=== PATIENT | female | born 2000 | race Caucasian/White ===

== ENCOUNTER 2022-07-11 17:03 | Inpatient (IN) | payer OTHER, SELFPAY ==
[2022-07-11 17:15] VITALS: BP 128/76; PULSE 100; RESP 18; TEMP 36.4; O2SAT 100
[2022-07-11 18:05] VITALS: BMI 24.0
--- NOTE | 2022-07-11 18:25 | PC.ADMIT ---
Patient is a 22 year old female from [facility] admitted on a CV with a diagnosis of major depressive disorder. Patient was sectioned to the ED by a mandated field reporter after disclosing to them homicidal ideation with a plan towards ex. Patient told reported that she had purchased a chainsaw and planned to use this to kill her ex. Per report she also told them that she would kill herself if this was disclosed to the police. On admission patient denied any HI, stating that this was a lie and that she had already met with the person she allegedly had HI towards days before and though she felt 'resentment' she denies having had any HI. Patient states that while at work she received a call from her therapist notifying her that the police had been told. She states that in response to this she left work, went home, and took 30 capsules of adderall. Patient reports she would have taken other medications but she was interrupted by the arrival of the police. This is the patient's third inpatient admission, she has a hx of overdosing on seroquel last fall and history of self harm (last attempt in 2020). Pt denies any medical history, denies any substance use history. On arrival she was dressed in [facility]. Eye contact was intermittent, and she was extremely soft spoken. Patient reported some anxiety about her job at [employer]. Thought process was linear and organized. Patient denies any SI/HI, denies any AH/VH.
[2022-07-12 06:44] VITALS: BP 134/96; PULSE 113; RESP 18; TEMP 36.6; O2SAT 98
--- NOTE | 2022-07-12 07:02 | PC.NURSE ---
Dolores c/o feeling dizzy in am and requested her vital signs to be taken HR 113 and B/P 134/96 while standing. at rest the Heart rate is 68 oscillated however this RN noted that her heart rate increases dramatically with any movement AEB: HR at rest 68, HR after removing blankets 117. will pass on to day RN
[2022-07-12 07:31] LABS: Alanine Aminotransferase 8 U/L (0-31); Albumin Level 4.4 g/dL (3.5-5.0); Alkaline Phosphatase 61 U/L (39-117); Anion Gap 14 (12-20); Aspartate Amino Transferase 12 U/L (5-31); Bilirubin Direct 0.2 mg/dL (0.0-0.5); Bilirubin Total 0.7 mg/dL (0.0-1.0); Blood Urea Nitrogen 11 mg/dL (9-16); Calcium 9.2 mg/dL (8.4-10.2); Carbon Dioxide 20 mmol/L (22-29); Chloride 111 mmol/L (96-108); Cholesterol 125 mg/dL; Creatinine Clr Calc Pharmacy 72.7; Estimated Glomerular Filt Rate > 60; Glucose Fasting 93 mg/dL (60-99); HDL Cholesterol 46 mg/dL; LDL Cholesterol Calculated 71 mg/dl; Potassium 4.1 mmol/L (3.3-5.1); Sodium 141 mmol/L (135-145); Total Protein 7.4 g/dL (6.5-8.0); Triglycerides 40 mg/dL
[2022-07-12 07:47] LABS: Thyroid Stimulating Hormone 1.93 uIU/mL (0.32-4.0)
[2022-07-12 09:15] VITALS: BP 134/84; PULSE 96; RESP 18; TEMP 36.4; O2SAT 100
--- NOTE | 2022-07-12 11:50 | P.HPPS_ITS ---
HPI Date of Service: 07/12/22 Chief Complaint: Major Depressive D/O Recurrent Episode Moderate Sources of Information: patient interviewed, chart reviewed and crisis/core team assessment reviewed HPI Subjective Notes: Rivera Warning (given and shows understanding), Conditional Vo luntary and 3 Day Narrative: Ms. Gonzalez is a 22 year-old woman with hx of BPD, PTSD who was brought via EMS to [facility] after pt sent email to psychotherapist stating that giving that he had sent mobile crisis for assessment of HI towards her ex partner, she was go ing to OD and write a suicide note with his name. On the unit, pt presents as calmer, soft spoken. Pt reports her psychotherapist misunderstood her when she said that she wanted to kill ex partner with rosette cummings. Pt reports she had no intent to harm his ex partner. Pt reports that at same time when she was reporting her therapist that she had HI, she also expressed not doing well and felt she was ignored. Pt reports that when she sent email to therapist she wanted to show that she was in distress initially and felt not believed. Pt denies suicidal or homicidal ideation. However, states that if it wasn't due to police stopping her she would have taken more medications including wellbutrin. She states she was working on writing suicide letter when police came to her house. She reports she does not want to work with her outpatient psychotherapist who runs the DBT teams and meets one to one for individual therapy. Past Psychiatric History: Inpt: [facility] 2021 OP: [facility] Past suicide attempts: denies attempts but hx of showing gun through zoom meeting to previous therapist reporting suicidal ideation. Past med trials: wellbutrin, cymbalta, clonidine Medical Evaluation Reviewed: Yes [facility] Medical History (Updated 07/14/22 @ 10:09 by Elba Matamoros) Major depressive disorder PTSD (post-traumatic stress disorder) Diagnostics Vital Signs (24Hr): Vital Signs - 24 hr 07/11/22 17:15 07/12/22 06:44 07/12/22 09:15 Temperature 97.6 F 97.9 F 97.6 F Pulse Rate 100 113 H 96 Respiratory Rate 18 18 18 Blood Pressure 128/76 134/96 H 134/84 Pulse Oximetry 100 98 100 Oxygen Delivery Method Room Air Room Air Room Air BMI result Body Mass Index 24.0 Labs 07/12/22 06:57 Labs: Laboratory Results - last 48 hr 07/12/22 06:57 Sodium 141 Potassium 4.1 Chloride 111 H Carbon Dioxide 20 L Anion Gap 14 BUN 11 Creatinine 1.03 Estim Creat Clear Calc 72.7 Estimated GFR > 60 Fasting Glucose 93 Calcium 9.2 Total Bilirubin 0.7 Direct Bilirubin 0.2 AST 12 ALT 8 Alkaline Phosphatase 61 Total Protein 7.4 Albumin 4.4 Triglycerides 40 Cholesterol 125 LDL Cholesterol, Calc 71 HDL Cholesterol 46 TSH 1.93 Meds/Allergies Meds Home Medications Medication Instructions Recorded Confirmed Type bupropion HCl 150 mg 24 hr tablet, 150 mg PO QAM 07/12/22 07/12/22 History extended release clonidine HCl 0.1 mg tablet 0.1 mg PO BEDTIME 07/12/22 07/12/22 History duloxetine 30 mg capsule,delayed 30 mg PO DAILY 07/12/22 07/12/22 History release sprinkle Allergies Allergies Allergy/AdvReac Type Severity Reaction Status Date / Time No Known Allergies Allergy Verified 07/11/22 17:21 Mental Status Exam Mental Status Exam Narrative: Appearance:casually groomed, good hygiene, in NAD Behavior:superficially cooperative Psychomotor: no agitation or retardation noted Speech:clear, normal rate/rhythm/volume, spontaneous TP:linear TC:no signs of psychosis, wanting to be discharged, upset about therapist Mood: fine Affect:constricted SI:denies HI: denies VH/AH: none Insight/judgment:poor x 2. Memory/cog: alert, oriented x 3. grossly intact to conversational testing. Assessment & Plan Assessment & Plan (1) Borderline personality disorder: Status: Acute Code(s): F60.3 - Borderline personality disorder Plan Ms. Gonzalez is a 22 year-old woman with hx of BPD who was brought to [facility] after intentional overdose on adderall after pt reported to therapist HI towards ex partner and was upset that therapist informed pt he had to report it, in return pt sent email to therapist and OD. Pt presents with limited insight as to concerning reports and subsequent intentional OD. Pt denies SI/HI but also states she stop OD because police came to her apartment. PLAN 1. Admit to M3, CV, 15 minutes checks for safety. 2. continue wellbutrin 3. Obtain collateral information 4. Aftercare planning. Patient educated on: diagnosis Reason for continued inpatient stay Substantial Risk for: harm to self Statement Statement: I have reviewed the history and physical and performed a pertinent examination on my patient. No changes have occurred unless specified. If the History and Physical was not performed prior to admission, the Hospitalist's service will be consulted for completing the admission physical. Time Spent With Patient Time: Total time managing care of this patient today ____ minutes.
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
[2022-07-12 21:23] VITALS: BP 139/85; PULSE 92; RESP 16; TEMP 36.4; O2SAT 100
[2022-07-13 08:00] VITALS: BP 122/68; PULSE 62; TEMP 36.8; O2SAT 100
--- NOTE | 2022-07-13 13:38 | HO.PSYCHPN ---
Subjective Subjective Date of Service: 07/13/22 Reason For Visit: Major Depressive D/O Recurrent Episode Moderate Subjective Notes: Conditional Voluntary Interim History: Pt continues to denied suicidal ideation. However, pt continues to present with no insight into events leading to this admission. Pt expresses feeling towards therapist, feels therapist not listening to her and states she does not want to work with her. Pt encouraged to at least meet with therapist and express her feeling, rather than firing therapist without closure. Medication Compliance: Yes Side effects from medications: No Attending Groups: No Review of Systems Review of Systems General: No fevers, malaise, unintentional weight loss HEENT: No blurred vision, diplopia. No sore throat, nasal congestion, rhinorrhea, sinus pain, ear pain Cardiovascular: No chest pain, palpitations, or leg edema Respiratory: No shortness of breath, wheezing, cough GI: No abdominal pain, nausea, vomiting, diarrhea, constipation, melena, hematochezia : No dysuria, hematuria, increased urinary frequency, decreased urinary output MSK: No myalgia, back pain Neuro: No headaches, weakness, paresthesias Skin: No rashes or lesions Mental Status Exam Mental Status Exam Narrative: Appearance:casually groomed, good hygiene, in NAD Behavior:superficially cooperative Psychomotor: no agitation or retardation noted Speech:clear, normal rate/rhythm/volume, spontaneous TP:linear TC:no signs of psychosis, wanting to be discharged, upset about therapist Mood: fine Affect:constricted SI:denies HI: denies VH/AH: none Insight/judgment:poor x 2. Memory/cog: alert, oriented x 3. grossly intact to conversational testing. Diagnostics Vital Signs (24Hr): Vital Signs - 24 hr 07/12/22 21:23 07/13/22 08:00 Temperature 97.6 F 98.3 F Pulse Rate 92 62 Respiratory Rate 16 Blood Pressure 139/85 122/68 Pulse Oximetry 100 100 Oxygen Delivery Method Room Air Room Air BMI result Body Mass Index 24.0 Labs 07/12/22 06:57 Labs: Laboratory Results - last 48 hr 07/12/22 06:57 Sodium 141 Potassium 4.1 Chloride 111 H Carbon Dioxide 20 L Anion Gap 14 BUN 11 Creatinine 1.03 Estim Creat Clear Calc 72.7 Estimated GFR > 60 Fasting Glucose 93 Calcium 9.2 Total Bilirubin 0.7 Direct Bilirubin 0.2 AST 12 ALT 8 Alkaline Phosphatase 61 Total Protein 7.4 Albumin 4.4 Triglycerides 40 Cholesterol 125 LDL Cholesterol, Calc 71 HDL Cholesterol 46 TSH 1.93 Medications Medications Current Medications Acetaminophen (Acetaminophen 325 Mg Tablet) 650 mg PO Q6H PRN PRN Reason: Headache/Pain Mild Scale (1-3) Al Hydroxide/Mg Hydroxide (Magnesium Hydrox/Alum Hydrox 30 Ml Oral.Susp) 30 ml PO Q6H PRN PRN Reason: Heartburn/Nausea Hydroxyzine HCl (Hydroxyzine Hcl 25 Mg Tablet) 25 mg PO Q6H PRN PRN Reason: Anxiety Magnesium Hydroxide (Milk Of Magnesia 30 Ml Oral.Susp) 30 ml PO DAILY PRN PRN Reason: Constipation Trazodone HCl (Trazodone Hcl 50 Mg Tablet) 50 mg PO BEDTIME PRN PRN Reason: Insomnia Allergies Allergies Allergy/AdvReac Type Severity Reaction Status Date / Time No Known Allergies Allergy Verified 07/11/22 17:21 Assessment & Plan Assessment & Plan (1) Borderline personality disorder: Status: Acute Code(s): F60.3 - Borderline personality disorder Plan 07/13 continue tx. Reason for contiued inpatient stay Substantial Risk for: harm to self Time Spent With Patient Time: Total time managing care of this patient today ____ minutes.
[2022-07-13 20:12] VITALS: BP 120/56; PULSE 70; RESP 14; TEMP 36.8; O2SAT 98
[2022-07-14] MEDS: Acetaminophen 325 MG TABLET 650 MG PO (05:13)
[2022-07-14 08:56] VITALS: BP 128/74; PULSE 79; RESP 18; TEMP 36.4; O2SAT 100
[2022-07-14] MEDS: buPROPion HCl XL 150 MG TAB.ER.24H PO (15:24)
--- NOTE | 2022-07-14 21:45 | HO.PSYCHPN ---
Subjective Subjective Date of Service: 07/14/22 Reason For Visit: Major Depressive D/O Recurrent Episode Moderate Subjective Notes: Conditional Voluntary and 3 Day Interim History: Pt denies SI/HI. Upset for therapist to call crisis initially when pt reported HI. Pt minimal insight that it has the subsequent intentional OD on adderall what ended up bringing pt tp hospital on section. Pt more open to meet with therapist prior to consider firing him as he also runs the DBT groups. Per nursing, pt most in room, social with select peers. Pt slept through the night. No behavioral concerns. Medication Compliance: Yes Review of Systems Review of Systems General: No fevers, malaise, unintentional weight loss HEENT: No blurred vision, diplopia. No sore throat, nasal congestion, rhinorrhea, sinus pain, ear pain Cardiovascular: No chest pain, palpitations, or leg edema Respiratory: No shortness of breath, wheezing, cough GI: No abdominal pain, nausea, vomiting, diarrhea, constipation, melena, hematochezia : No dysuria, hematuria, increased urinary frequency, decreased urinary output MSK: No myalgia, back pain Neuro: No headaches, weakness, paresthesias Skin: No rashes or lesions Mental Status Exam Mental Status Exam Narrative: Appearance:casually groomed, good hygiene, in NAD Behavior:superficially cooperative Psychomotor: no agitation or retardation noted Speech:clear, normal rate/rhythm/volume, spontaneous TP:linear TC:no signs of psychosis, wanting to be discharged, upset about therapist Mood: fine Affect:constricted SI:denies HI: denies VH/AH: none Insight/judgment:poor x 2. Memory/cog: alert, oriented x 3. grossly intact to conversational testing. Diagnostics Vital Signs (24Hr): Vital Signs - 24 hr 07/14/22 08:56 Temperature 97.6 F Pulse Rate 79 Respiratory Rate 18 Blood Pressure 128/74 Pulse Oximetry 100 BMI result Body Mass Index 24.0 Labs 07/12/22 06:57 Medications Medications Current Medications Acetaminophen (Acetaminophen 325 Mg Tablet) 650 mg PO Q6H PRN PRN Reason: Headache/Pain Mild Scale (1-3) Last Admin: 07/14/22 05:13 Dose: 650 mg Al Hydroxide/Mg Hydroxide (Magnesium Hydrox/Alum Hydrox 30 Ml Oral.Susp) 30 ml PO Q6H PRN PRN Reason: Heartburn/Nausea Bupropion HCl (Bupropion Hcl Xl 150 Mg Tab.Er.24h) 150 mg PO DAILY СЕРГЕЙ Last Admin: 07/14/22 15:24 Dose: 150 mg Hydroxyzine HCl (Hydroxyzine Hcl 25 Mg Tablet) 25 mg PO Q6H PRN PRN Reason: Anxiety Magnesium Hydroxide (Milk Of Magnesia 30 Ml Oral.Susp) 30 ml PO DAILY PRN PRN Reason: Constipation Trazodone HCl (Trazodone Hcl 50 Mg Tablet) 50 mg PO BEDTIME PRN PRN Reason: Insomnia Allergies Allergies Allergy/AdvReac Type Severity Reaction Status Date / Time No Known Allergies Allergy Verified 07/11/22 17:21 Assessment & Plan Assessment & Plan (1) Borderline personality disorder: Status: Acute Code(s): F60.3 - Borderline personality disorder Plan 07/14 continue tx. d/c tomorrow with plan to continue tx at [facility]. Reason for contiued inpatient stay Substantial Risk for: stable for discharge Time Spent With Patient Time: Total time managing care of this patient today ____ minutes.
--- NOTE | 2022-07-15 06:52 | PM.PSYDC ---
DS: Providers Provider Date of Service: 07/15/22 Date of admission: 07/11/22 17:03 Primary care physician: Unknown Physician Consults: 07/12/22 13:48 Consult to Hospitalist Routine Comment: Consulting Provider: Hospitalist Reason For Exam: medical H&P DS: Diagnosis Discharge Diagnosis (1) Borderline personality disorder: Status: Acute DS: Medications Discharge Medications Home Medications: Home Medications Medication Instructions Recorded Confirmed bupropion HCl 150 mg 24 hr tablet, 150 mg PO QAM 07/12/22 07/12/22 extended release clonidine HCl 0.1 mg tablet 0.1 mg PO BEDTIME 07/12/22 07/12/22 Data Data Completed and Pending Completed studies during hospitalization [Text1]: 07/12/22 06:57 Sodium 141 Potassium 4.1 Chloride 111 H Carbon Dioxide 20 L Anion Gap 14 BUN 11 Creatinine 1.03 Estim Creat Clear Calc 72.7 Estimated GFR > 60 Fasting Glucose 93 Calcium 9.2 Total Bilirubin 0.7 Direct Bilirubin 0.2 AST 12 ALT 8 Alkaline Phosphatase 61 Total Protein 7.4 Albumin 4.4 Triglycerides 40 Cholesterol 125 LDL Cholesterol, Calc 71 HDL Cholesterol 46 TSH 1.93 07/13/22 14:30 Urine clean catch - Clean Catch Midstream Urine Culture - Final No growth. DS: Summary Hospital Course Hospital Course: Subjective Notes: Rivera Warning (given and shows understanding), Conditional Voluntary and 3 Day Narrative: Ms. Gonzalez is a 22 year-old woman with hx of BPD, PTSD who was brought via EMS to [facility] after pt sent email to psychotherapist stating that giving that he had sent mobile crisis for assessment of HI towards her ex partner, she was going to OD and write a suicide note with his name. On the unit, pt presents as calmer, soft spoken. Pt reports her psychotherapist misunderstood her when she said that she wanted to kill ex partner? with rosette saw. Pt reports she had no intent to harm his ex partner. Pt reports that at same time when she was reporting her therapist that she had HI, she also expressed not doing well and felt she was ignored. Pt reports that when she sent email to therapist she wanted to show that she was in distress initially and felt not believed. Pt denies suicidal or homicidal ideation. However, states that if it wasn't due to police stopping her she would have taken more medications including wellbutrin. She states she was working on writing suicide letter when police came to her house. She reports she does not want to work with her outpatient psychotherapist who runs the DBT teams and meets one to one for individual therapy.? Past Psychiatric History: Inpt: [facility] 2021 OP: [facility] Past suicide attempts: denies attempts but hx of showing gun through zoom meeting to previous therapist reporting suicidal ideation.? Past med trials: wellbutrin, cymbalta, clonidine HOSPITAL COURSE On the unit, pt presented as calm, soft spoke. She denied suicidal or homicidal ideation. She reported intentional OD was in context of feeling upset with therapist for reporting to crisis initial reports of HI towards ex partner with plan to hurt him with rosette cummings. Pt adamantly denies any plan or intent to harm anyone including the ex partner. She denies SI. However, reports she only stopped OD because police came to her house. Pt does not present with overt signs of depression, denies plans of SI even prior to this incident but does state that even before reports of HI towards partner she was in some sort of emotional distress and wished her therapist had been more attentive. Pt initially refusing to see therapist again but later agree to meet with therapist, who is DBT trained and runs the DBT group she attends, and express her feeling and also give change to therapist to explain why he did what he did. Pt has been visible on the unit, social with select peers. No signs of psychosis or delusions. No aggression towards self or others. On the unit, there were no incidences of disruptive behaviors nor need for restraints. Status at Discharge Cognitive/behavioral status at discharge: Pt with constricted, non labile affect. No SI/HI. No signs of psychosis. Limited insight into low frustration tolerance, impulsive behaviors and ability to see others' concern related to impulsive behaviors with harming tendencies. These appeared to be related to BPD which pt currently working on DBT skills. No aggression towards self or others. Functional status at discharge: independent ambulation Overall status at discharge: patient is progressing back to baseline Time Spent with Patient Time attestation: Total time managing care of this patient today ____ minutes. Discharge Plan Discharge Anticipated Discharge Date/Time: 07/15/22 06:45 Patient Disposition: Home, Self-Care Discharge Diagnosis: BPD Referrals: Physician,Unknown J [Primary Care Provider] - 1 Week Discharge Medications: Continued clonidine HCl 0.1 mg Tablet 0.1 mg PO BEDTIME Rx Instructions: May take 1/2-1 tab bupropion HCl 150 mg tablet extended release 24 hr 150 mg PO QAM Rx Instructions: Per pharmacy last refill 07/01/22 then cancelled. Discontinued duloxetine 30 mg Capsule, Delayed Rel Sprinkle 30 mg PO DAILY Discharge Orders: Discharge Order (Routine); Ordered 07/15/22 Ordered By: Elba Matamoros Diet: Regular diet Activity on Discharge: As tolerated Stand Alone Forms: Patient Portal Discharge page Care Plan Goals: 1. Maintain mood 2. No self harm behaviors 3. No SI/HI Health Concerns: Follow up with PCP Plan of Treatment: 1. Take medications as prescribed 2. Go to nearest ED or call 911 in event of emergency Assessment: Pt is calm, with no signs of emotional distress. No overt signs of SI/HI. Pt reports OD in response to therapist and feeling upset with therapist. No signs of aggression towards self or others. Pt with tendency to be impulsive, low frustration tolerance with limited insight is chronic risk for self harm.
[2022-07-15 08:49] VITALS: BP 123/76; PULSE 83; RESP 18; TEMP 36.6; O2SAT 100
[2022-07-15] MEDS: buPROPion HCl XL 150 MG TAB.ER.24H PO (08:50)
--- NOTE | 2022-07-15 15:00 | PC.NURSE ---
Patient easily engaged. Reports mood is improved. States she is feeling better and ready to leave. Denies any sleep or appetite disturbances. Denies perceptual disturbances, no over psychosis or expressed delusions. Denies SI/HI at this time. Plans to return to home. Discharge paperwork reviewed. Made aware of [facility]. Educated regarding obtaining PCP through [facility]. Reports follow up appointment at [facility] on July 24, 2022. Discharge medication reviewed, reports understanding. Crisis information provided. All belongings taken with patient.
== END 2022-07-15 13:45 | disposition home or self-care (01) | DRG 752 ==
PROVIDERS: Clinical Nurse Specialist Psychiatric/Mental Health; Admitting Provider Psychiatry & Neurology Psychiatry; Visit Provider Social Worker
DX: F60.3 Borderline personality disorder (principal); F43.10 Post-traumatic stress disorder, unspecified; Z79.899 Other long term (current) drug therapy
CPT/HCPCS: 36415; 80053; 80061; 80076; 84443; 87086